=== PATIENT | female | born 1960 | race Caucasian/White ===

== ENCOUNTER 2022-05-28 09:45 | Outpatient (CLI) | payer OTHER ==
[~2022-05-28 09:45] MED LIST: COZAAR100 MG PO; INTESTINEX680 MG PO; OMEPRAZOLE20 MG PO; PERCOCET 5/3251 TAB PO; SYNTHROID150 MCG PO
== END 2022-05-28 09:56 | disposition home or self-care (01) ==
LOC: RX STUDY 09:45
PROVIDERS: ATTEND Family Medicine Addiction Medicine
DX: J38.01 Paralysis of vocal cords and larynx, unilateral (principal); R13.10 Dysphagia, unspecified